=== PATIENT | female | born 1990 | race American Indian/Alaskan Native ===

== ENCOUNTER 2020-11-20 01:57 | Inpatient (IN) | payer SELFPAY ==
[2020-11-20 02:46] LABS: Hematocrit 37.6 % (30.3-42.9); Hemoglobin 12.7 gm/dl (10.1-14.3); Mean Corpuscular HGB Conc 34 % (30-34); Mean Corpuscular Volume 108 fl (79-97); Platelet Count 243 K/mm3 (140-440); Red Blood Count 3.49 M/mm3 (3.65-5.03); Red Cell Distribution Width 19.2 % (13.2-15.2)
[2020-11-20] MEDS ORDERED: SODIUM CHLORIDE 0.9% 1000 ML 1,000 ML IV ONE (02:49)
[2020-11-20] MEDS ORDERED: THIAMINE 100 MG in SODIUM CHLORIDE 0.9% 50 ML IV ONE (02:49)
[2020-11-20] MEDS ORDERED: ONDANSETRON 4 MG/2 ML INJ IV ONE (02:49)
[2020-11-20] MEDS ORDERED: FAMOTIDINE 20 MG/2 ML INJ IV ONE (02:49)
[2020-11-20] MEDS ORDERED: LORazepam 2 MG/ML VIAL IV ONE (02:50)
[2020-11-20] MEDS ORDERED: LIDOCAINE VISCOUS 2% 15 ML ORAL LIQD PO ONE (02:57)
[2020-11-20] MEDS ORDERED: ALUM-MAG HYDROXIDE-SIMETHICONE 200-200-20MG/5ML ORAL LIQD 30 ML PO ONE (02:57)
--- NOTE | 2020-11-20 03:02 | Emergency Department Report ---
ED Chest Pain HPI - General Chief Complaint: Chest Pain Stated Complaint: CHEST PAIN/NUMBNESS PUI?: No Time Seen by Provider: 11/20/20 02:46 Source: patient Mode of arrival: Ambulatory Limitations: No Limitations - History of Present Illness Initial Comments: Patient is a 30-year-old female that presents emergency room with complaints of epigastric pain. Patient states she not actually having chest pain. Patient states that it is on her epigastrium. Patient states she drinks daily. Patient states she is drink daily for several months. Patient states her last drink was 1 to 2 days ago. Patient states she drinks a bottle of vodka per day. Patient states she is having numbness in her hands. Patient states she does not take any multivitamins or vitamin D intake. Patient denies shortness of breath. Patient complains of being anxious. Patient denies nausea and vomiting. Patient states that her epigastric pain is a burning sensation in her epigastric region. Patient states the pain is a 6 out of 10. Patient states the pain is worse with alcohol intake. Patient denies recent travel. Patient denies recent international travel. Patient denies exposure to the novel coronavirus. Patient denies sick contacts. Patient denies fever and chills. Patient denies cough. Patient denies diarrhea. Patient denies coming in contact with anybody with symptoms of the novel coronavirus. -: Sudden - Related Data Allergies Allergy/AdvReac Type Severity Reaction Status Date / Time No Known Allergies Allergy Verified 11/20/20 02:52 Heart Score - HEART Score History: Slightly suspicious EKG: Normal Age: < 45 Risk factors: No known risk factors Troponin: < normal limit HEART Score: 0 ED Review of Systems ROS: Stated complaint: CHEST PAIN/NUMBNESS Other details as noted in HPI Constitutional: denies: chills, fever Eyes: denies: eye pain, eye discharge, vision change ENT: denies: ear pain, throat pain Respiratory: denies: cough, shortness of breath, wheezing Cardiovascular: denies: chest pain, palpitations Endocrine: no symptoms reported Gastrointestinal: as per HPI, abdominal pain. denies: nausea, diarrhea Genitourinary: denies: urgency, dysuria, discharge Musculoskeletal: denies: back pain, joint swelling, arthralgia Skin: denies: rash, lesions Neurological: denies: headache, weakness, paresthesias Psychiatric: denies: anxiety, depression Hematological/Lymphatic: denies: easy bleeding, easy bruising ED Past Medical Hx - Past Medical History Previous Medical History?: No - Surgical History Past Surgical History?: No - Family History Family history: no significant - Social History Smoking Status: Never Smoker Substance Use Type: Alcohol ED Physical Exam - General Limitations: No Limitations General appearance: alert, in no apparent distress - Head Head exam: Present: atraumatic, normocephalic - Eye Eye exam: Present: normal appearance - ENT ENT exam: Present: mucous membranes moist - Neck Neck exam: Present: normal inspection - Respiratory Respiratory exam: Present: normal lung sounds bilaterally. Absent: respiratory distress, chest wall tenderness - Cardiovascular Cardiovascular Exam: Present: regular rate, normal rhythm. Absent: systolic murmur, diastolic murmur, rubs, gallop - GI/Abdominal GI/Abdominal exam: Present: soft, tenderness (Epigastric tenderness), normal bowel sounds - Extremities Exam Extremities exam: Present: normal inspection - Back Exam Back exam: Present: normal inspection - Neurological Exam Neurological exam: Present: alert, oriented X3 - Psychiatric Psychiatric exam: Present: normal affect, normal mood - Skin Skin exam: Present: warm, dry, intact, normal color. Absent: rash ED Course Vital Signs 11/20/20 11/20/20 11/20/20 01:44 03:00 03:57 Pulse Rate 95 H Respiratory 16 Rate Blood Pressure 180/85 Blood Pressure 168/130 [Left] O2 Sat by Pulse 94 96 98 Oximetry 11/20/20 11/20/20 11/20/20 04:31 05:40 05:41 Pulse Rate 106 H 106 H Respiratory 18 18 Rate Blood Pressure 197/142 179/138 Blood Pressure 170/102 [Left] O2 Sat by Pulse 97 Oximetry - Reevaluation(s) Reevaluation #1: Initial evaluation done. Patient has refused IV medications. Patient states she does not want to be stuck. Patient states she does not want her medications to be given IM. Patient does not want any more needles. Patient refuses IV. Patient states that she will take a GI cocktail. 11/20/20 03:00 Reevaluation #2: Patient states feeling more anxious. Patient states she is feeling more tremulous. Patient agrees to have IV placed. 11/20/20 03:49 Reevaluation #3: Patient has received IV and IV Ativan and fluids.. Patient is severely tachycardic. Patient's blood pressure is also very high. Patient was started on CIWA protocol. Patient states feeling quite anxious and she is feeling shaky. 11/20/20 04:22 Reevaluation #4: Patient has required multiple doses of Ativan. Patient will continue on the CIWA protocol. Patient had numbness is improving with the banana bag. I discussed all results with patient. I discussed plan of care with patient. Patient agrees with plan of care and admission. Patient to be admitted to the hospitalist service. 11/20/20 04:50 - Consultations Consultation #1: Hospitalist consulted for admission. Hospitalist to admit patient. 11/20/20 04:50 MORALES score - Morales Score Age > 65: (0) No Aspirin use within the Past 7 Days: (0) No 3 or more CAD Risk Factors: (0) No 2 or more Angina events in past 24 hrs: (0) No Known CAD with more than 50% Stenosis: (0) No Elevated Cardiac Markers: (0) No ST Deviation Greater than 0.5mm: (0) No MORALES Score: 0 ED Medical Decision Making - Lab Data Result diagrams: 11/20/20 02:17 11/20/20 02:17 - EKG Data -: EKG Interpreted by Me EKG shows normal: sinus rhythm, axis, intervals, QRS complexes, ST-T waves Rate: normal - Radiology Data Radiology results: report reviewed, image reviewed interpreted by me: Chest x-ray: No pneumonia, no pneumothorax, no foreign body, no osseous findings, no acute findings CHEST 1 VIEW 3:15 AM INDICATION / CLINICAL INFORMATION: Chest Pain. COMPARISON: None available. FINDINGS: SUPPORT DEVICES: None. HEART / MEDIASTINUM: The heart size and pulmonary vasculature are normal. The aorta is normal in caliber. LUNGS / PLEURA: No significant pulmonary or pleural abnormality. No pneumothora x. ADDITIONAL FINDINGS: No significant additional findings. IMPRESSION: No acute findings. - Medical Decision Making Patient is a 30-year-old female that presents emergency room with complaints of epigastric pain. Patient denies chest pain or shortness of breath. Patient also complains of anxiety and hand numbness. Patient also complains of feeling shaky and tremulous. Patient is a daily drinker. Patient has not drank for 1 to 2 days. Patient given a GI cocktail for the gastritis and her pain improved. Patient found to be tachycardic and hypertensive. Patient started on a CIWA protocol and given Ativan. Patient required multiple doses of Ativan. Patient responded well to treatment. Patient also given Pepcid and IV fluids and a banana bag and a multivitamin. Patient admitted to the hospitalist service for further evaluation treatment and observation. Patient in alcohol withdrawal. - Differential Diagnosis Alcoholism, alcoholic gastritis, B12 deficiency, hand numbness, alcohol wit Critical Care Time: Yes Critical care time in (mins) excluding proc time.: 35 Critical care attestation.: If time is entered above; I have spent that time in minutes in the direct care of this critically ill patient, excluding procedure time. Critical Care Time: 35 minutes ED Disposition Clinical Impression: Epigastric pain, Bilateral hand numbness, Vitamin deficiency, Macrocytosis, Anxiety, Hypokalemia, Hypomagnesemia Alcoholic gastritis Qualifiers: Chronicity: acute Gastritis bleeding: without bleeding Qualified Code(s): K29.20 - Alcoholic gastritis without bleeding Alcohol withdrawal Qualifiers: Complication of substance-induced condition: uncomplicated Qualified Code(s): F10.230 - Alcohol dependence with withdrawal, uncomplicated Hypertension Qualifiers: Hypertension type: unspecified Qualified Code(s): I10 - Essential (primary) hypertension Disposition: 09 OP ADMIT IP TO THIS HOSP Is pt being admited?: Yes Does the pt Need Aspirin: No Condition: Critical Instructions: Hypertension (ED) Time of Disposition: 04:50
[2020-11-20 03:05] LABS: Blood Urea Nitrogen 5 mg/dL (7-17); Calcium 8.8 mg/dL (8.4-10.2); Hemolysis Index 3
[2020-11-20 03:09] LABS: BUN/Creatinine Ratio 10
--- NOTE | 2020-11-20 03:21 | XRay Report ---
CHEST 1 VIEW 3:15 AM INDICATION / CLINICAL INFORMATION: Chest Pain. COMPARISON: None available. FINDINGS: SUPPORT DEVICES: None. HEART / MEDIASTINUM: The heart size and pulmonary vasculature are normal. The aorta is normal in franco maciel. LUNGS / PLEURA: No significant pulmonary or pleural abnormality. No pneumothorax. ADDITIONAL FINDINGS: No significant additional findings. IMPRESSION: No acute findings. Signer Name: Shahid Hidalgo MD Signed: 11/20/2020 3:17 AM Workstation Name: [id number]
[2020-11-20 03:25] LABS: Albumin 4.4 g/dL (3.9-5); Bilirubin,Direct 0.5 mg/dL (0-0.2)
[2020-11-20] MEDS ORDERED: THIAMINE 100 MG, FOLIC ACID 1 MG, MULTIPLE VITAMIN INJ, ADULT 10 ML in SODIUM CHLORIDE ... IV ONE (04:04)
[2020-11-20] MEDS ORDERED: LORazepam 2 MG/ML VIAL IV PRN ×2 (04:20)
[2020-11-20 04:25] LABS: Anisocytosis 1+; Macrocytosis 1+; Platelet Estimate Consistent w Auto; Total Cells Counted 100
[2020-11-20] MEDS: LORazepam 2 MG/ML VIAL IV PRN ×7 (04:25→21:24)
[2020-11-20] MEDS ORDERED: ONDANSETRON 4 MG/2 ML INJ IV PRN (05:23)
[2020-11-20] MEDS ORDERED: ALUM-MAG HYDROXIDE-SIMETHICONE 200-200-20MG/5ML ORAL LIQD 30 ML PO PRN (05:23)
[2020-11-20] MEDS ORDERED: ACETAMINOPHEN 325 MG TAB PO PRN (05:23)
--- NOTE | 2020-11-20 05:30 | History and Physical Report ---
History of Present Illness Date of examination: 11/20/20 Chief complaint: Chest pain Epigastric pain Alcohol withdrawal History of present illness: 30-year-old female with history of alcohol abuse was brought to emergency room with complaints of epigastric pain/chest pain. Patient is not actually having chest pain, it is on her epigastrium. Patient complaining of epigastric pain is a burning sensation in her epigastric region which is 6/10 worse with alcohol intake. patient drinks a bottle of vodka per day for several months. Patient states she is having numbness in her hands. Patient states she does not take any multivitamins or vitamin D intake. Patient denies shortness of breath. Patient complains of being anxious. Medications and Allergies Allergies Allergy/AdvReac Type Severity Reaction Status Date / Time No Known Allergies Allergy Verified 11/20/20 02:52 Active Meds: Active Medications Acetaminophen (Acetaminophen 325 Mg Tab) 650 mg PO Q4H PRN PRN Reason: Pain MILD(1-3)/Fever >100.5/CARTER Al Hydrox/Mg Hydrox/Simethicone (Alum-Mag Hydroxide-Simethicone [id number]/5ml Oral Liqd 30 Ml) 30 ml PO Q4H PRN PRN Reason: Indigestion Famotidine (Famotidine 20 Mg/2 Ml Inj) 20 mg IV BID RAZ Thiamine HCl 100 mg/ Folic Acid 1 mg/ Multivitamins/Minerals 10 ml/ Sodium Chloride 1,011.2 mls @ 250 mls/hr IV ONCE ONE Stop: 11/20/20 08:06 Last Admin: 11/20/20 04:46 Dose: 250 mls/hr Documented by: Potassium Chloride/Dextrose/Sod Cl (D5w/0.45% Nacl/Kcl 20 Meq) 20 meq in 1,000 mls @ 100 mls/hr IV DIRECT RAZ Lorazepam (Lorazepam 2 Mg/Ml Vial) 2 mg IV Q1HR PRN PRN Reason: CIWA-Ar 8-15 Last Admin: 11/20/20 04:46 Dose: 2 mg Documented by: Lorazepam (Lorazepam 2 Mg/Ml Vial) 4 mg IV Q1HR PRN PRN Reason: CIWA-Ar 16-25 Lorazepam (Lorazepam 2 Mg/Ml Vial) 4 mg IV Q15MIN PRN PRN Reason: CIWA-Ar >25 Ondansetron HCl (Ondansetron 4 Mg/2 Ml Inj) 4 mg IV Q8H PRN PRN Reason: Nausea And Vomiting Sodium Chloride (Sodium Chloride 0.9% 10 Ml Flush Syringe) 10 ml IV BID RAZ Sodium Chloride (Sodium Chloride 0.9% 10 Ml Flush Syringe) 10 ml IV PRN PRN PRN Reason: LINE FLUSH Review of Systems Constitutional: fatigue, lethargy Exam - Constitutional Vitals: Temp Pulse Resp BP Pulse Ox 95 H 16 168/130 98 11/20/20 03:57 11/20/20 03:57 11/20/20 03:57 11/20/20 03:57 General appearance: Present: no acute distress, mild distress, well-nourished - EENT Eyes: Present: PERRL ENT: hearing intact, clear oral mucosa - Neck Neck: Present: supple, normal ROM - Respiratory Respiratory effort: normal Respiratory: bilateral: CTA - Cardiovascular Heart Sounds: Present: S1 & S2. Absent: rub, click - Extremities Extremities: pulses symmetrical, No edema Peripheral Pulses: within normal limits - Abdominal General gastrointestinal: Present: soft, non-tender, non-distended, normal bowel sounds Female genitourinary: Present: normal - Integumentary Integumentary: Present: clear, warm, dry - Musculoskeletal Musculoskeletal: gait normal, strength equal bilaterally - Psychiatric Psychiatric: appropriate mood/affect, intact judgment & insight, agitated - Neurologic Neurologic: CNII-XII intact, moves all extremities HEART Score - HEART Score EKG: Normal Age: < 45 Risk factors: No known risk factors Troponin: Troponin T < 0.010 ng/mL (0.00-0.029) 11/20/20 02:17 Troponin: < normal limit Results - Labs CBC & Chem 7: 11/20/20 02:17 11/20/20 02:17 Labs: Laboratory Last Values WBC 4.6 K/mm3 (4.5-11.0) 11/20/20 02:17 RBC 3.49 M/mm3 (3.65-5.03) L 11/20/20 02:17 Hgb 12.7 gm/dl (10.1-14.3) 11/20/20 02:17 Hct 37.6 % (30.3-42.9) 11/20/20 02:17 MCV 108 fl (79-97) H 11/20/20 02:17 MCH 37 pg (28-32) H 11/20/20 02:17 MCHC 34 % (30-34) 11/20/20 02:17 RDW 19.2 % (13.2-15.2) H 11/20/20 02:17 Plt Count 243 K/mm3 (140-440) 11/20/20 02:17 [place] % (Auto) Banking Paralegal 11/20/20 02:17 Add Manual Diff Complete 11/20/20 02:17 Total Counted 100 11/20/20 02:17 Seg Neuts % (Manual) 51.0 % (40.0-70.0) 11/20/20 02:17 Lymphocytes % (Manual) 27.0 % (13.4-35.0) 11/20/20 02:17 Monocytes % (Manual) 11.0 % (0.0-7.3) H 11/20/20 02:17 Eosinophils % (Manual) 11.0 % (0.0-4.3) H 11/20/20 02:17 Nucleated RBC % Not Reportable 11/20/20 02:17 Seg Neutrophils # Man 2.3 K/mm3 (1.8-7.7) 11/20/20 02:17 Band Neutrophils # 0.0 K/mm3 11/20/20 02:17 Lymphocytes # (Manual) 1.2 K/mm3 (1.2-5.4) 11/20/20 02:17 Abs React Lymphs (Man) 0.0 K/mm3 11/20/20 02:17 Monocytes # (Manual) 0.5 K/mm3 (0.0-0.8) 11/20/20 02:17 Eosinophils # (Manual) 0.5 K/mm3 (0.0-0.4) H 11/20/20 02:17 Basophils # (Manual) 0.0 K/mm3 (0.0-0.1) 11/20/20 02:17 Metamyelocytes # 0.0 K/mm3 11/20/20 02:17 Myelocytes # 0.0 K/mm3 11/20/20 02:17 Promyelocytes # 0.0 K/mm3 11/20/20 02:17 Blast Cells # 0.0 K/mm3 11/20/20 02:17 WBC Morphology Not Reportable 11/20/20 02:17 Hypersegmented Neuts Not Reportable 11/20/20 02:17 Hyposegmented Neuts Not Reportable 11/20/20 02:17 Hypogranular Neuts Not Reportable 11/20/20 02:17 Smudge Cells Not Reportable 11/20/20 02:17 Toxic Granulation Not Reportable 11/20/20 02:17 Toxic Vacuolation Not Reportable 11/20/20 02:17 Dohle Bodies Not Reportable 11/20/20 02:17 Pelger-Huet Anomaly Not Reportable 11/20/20 02:17 Gage Rods Not Reportable 11/20/20 02:17 Platelet Estimate Consistent w auto 11/20/20 02:17 Clumped Platelets Not Reportable 11/20/20 02:17 Plt Clumps, EDTA Not Reportable 11/20/20 02:17 Large Platelets Not Reportable 11/20/20 02:17 Giant Platelets Not Reportable 11/20/20 02:17 Platelet Satelliting Not Reportable 11/20/20 02:17 Plt Morphology Comment Not Reportable 11/20/20 02:17 RBC Morphology Not Reportable 11/20/20 02:17 Dimorphic RBCs Not Reportable 11/20/20 02:17 Polychromasia Not Reportable 11/20/20 02:17 Hypochromasia Not Reportable 11/20/20 02:17 Poikilocytosis Not Reportable 11/20/20 02:17 Anisocytosis 1+ 11/20/20 02:17 Microcytosis Not Reportable 11/20/20 02:17 Macrocytosis 1+ 11/20/20 02:17 Spherocytes Not Reportable 11/20/20 02:17 Pappenheimer Bodies Not Reportable 11/20/20 02:17 Sickle Cells Not Reportable 11/20/20 02:17 Target Cells Not Reportable 11/20/20 02:17 Tear Drop Cells Not Reportable 11/20/20 02:17 Ovalocytes Not Reportable 11/20/20 02:17 Helmet Cells Not Reportable 11/20/20 02:17 Bonilla-Gower Bodies Not Reportable 11/20/20 02:17 [place] Rings Not Reportable 11/20/20 02:17 Von Cells Not Reportable 11/20/20 02:17 Bite Cells Not Reportable 11/20/20 02:17 Crenated Cell Not Reportable 11/20/20 02:17 Elliptocytes Not Reportable 11/20/20 02:17 Acanthocytes (Spur) Not Reportable 11/20/20 02:17 Rouleaux Not Reportable 11/20/20 02:17 Hemoglobin C Crystals Not Reportable 11/20/20 02:17 Schistocytes Not Reportable 11/20/20 02:17 Malaria parasites Not Reportable 11/20/20 02:17 Philipp Bodies Not Reportable 11/20/20 02:17 Hem Pathologist Commnt No 11/20/20 02:17 Sodium 140 mmol/L (137-145) 11/20/20 02:17 Potassium 3.0 mmol/L (3.6-5.0) L 11/20/20 02:17 Chloride 96.8 mmol/L (98-107) L 11/20/20 02:17 Carbon Dioxide 26 mmol/L (22-30) 11/20/20 02:17 Anion Gap 20 mmol/L 11/20/20 02:17 BUN 5 mg/dL (7-17) L 11/20/20 02:17 Creatinine 0.5 mg/dL (0.6-1.2) L 11/20/20 02:17 Estimated GFR > 60 ml/min 11/20/20 02:17 BUN/Creatinine Ratio 10 % 11/20/20 02:17 Glucose 124 mg/dL (65-100) H 11/20/20 02:17 Calcium 8.8 mg/dL (8.4-10.2) 11/20/20 02:17 Total Bilirubin 1.60 mg/dL (0.1-1.2) H 11/20/20 02:57 Direct Bilirubin 0.5 mg/dL (0-0.2) H 11/20/20 02:57 Indirect Bilirubin 1.1 mg/dL 11/20/20 02:57 AST 105 units/L (5-40) H 11/20/20 02:57 ALT 37 units/L (7-56) 11/20/20 02:57 Alkaline Phosphatase 105 units/L (35-129) 11/20/20 02:57 Troponin T < 0.010 ng/mL (0.00-0.029) 11/20/20 02:17 Total Protein 7.0 g/dL (6.3-8.2) 11/20/20 02:57 Albumin 4.4 g/dL (3.9-5) 11/20/20 02:57 Albumin/Globulin Ratio 1.7 % 11/20/20 02:57 HCG, Qual Negative (Negative) 11/20/20 02:17 - Imaging and Cardiology Chest x-ray: image reviewed Masters/IV: IV Catheter Type [Right INT / Saline Lock Antecubital] Assessment and Plan - Patient Problems (1) Alcoholic gastritis Current Visit: Yes Status: Acute Qualifiers: Chronicity: acute Gastritis bleeding: without bleeding Qualified Code(s): K29.20 - Alcoholic gastritis without bleeding Plan to address problem: Admit the patient to the medical floor. Put the patient on regular diet. D5 half-normal saline with 20 of potassium K at the rate of 100 cc/h. Pepcid 20 mg IV every 12 hours. Zofran 4 mg IV every 6 hours as needed. Maalox 30 mL p.o. every 6 hours as needed. Recheck CBC BMP in the morning (2) Alcohol withdrawal Current Visit: Yes Status: Acute Qualifiers: Complication of substance-induced condition: uncomplicated Qualified Code(s): F10.230 - Alcohol dependence with withdrawal, uncomplicated Plan to address problem: Admit the patient to the medical floor. Put the patient on regular diet. D5 half-normal saline with 20 of potassium K at the rate of 100 cc/h. Put the patient on CIWA protocol. We will watch for withdrawal closely. Patient counseled regarding quit drinking. Recheck CBC BMP in the morning. Heparin 5000 units subcu every 8 hours for DVT prophylaxis and Pepcid 20 mg IV every 12 hours for GI prophylaxis.
[2020-11-20] MEDS ORDERED: METOPROLOL TARTRATE 5 MG/5 ML INJ IV ONE (05:43)
[2020-11-20] MEDS ORDERED: D5W/0.45% NACL/KCL 20 MEQ 20 MEQ/1,000 ML BAG IV SCH (06:00)
[2020-11-20] MEDS ORDERED: MAGNESIUM SULFATE 2 GM/50 ML BAG IV ONE (08:56)
[2020-11-20] MEDS ORDERED: POTASSIUM CHLORIDE 20 MEQ PACKET FEEDTUBE ONE (09:00)
[2020-11-20] MEDS: SUCRALFATE 1 GM/10 ML ORAL LIQD PO SCH ×3 (09:32→20:15)
[2020-11-20] MEDS: FAMOTIDINE 20 MG/2 ML INJ IV SCH ×2 (09:36→22:10)
--- NOTE | 2020-11-20 10:52 | Event Note ---
Date: 11/20/20 Patient was seen and evaluated this morning. Patient admitted for gastric pain, alcohol abuse, and electrolyte abnormalities. Electrolytes were repleted. Patient is on CIWA protocol. We will resume his diet. Continue management as outlined in H&P.
[2020-11-20 12:13] LABS: Blood Urea Nitrogen 3 mg/dL (7-17); Calcium 7.6 mg/dL (8.4-10.2); Hemolysis Index 37
[2020-11-20 12:23] LABS: BUN/Creatinine Ratio 10
[2020-11-20] MEDS: hydrALAZINE 20 MG/1 ML INJ IV PRN ×2 (14:33→20:57)
[2020-11-21] MEDS ORDERED: dilTIAZem 25 MG/5 ML INJ IV ONE ×2 (01:01→05:06)
[2020-11-21] MEDS: SUCRALFATE 1 GM/10 ML ORAL LIQD PO SCH ×3 (01:19→12:22)
[2020-11-21] MEDS: hydrALAZINE 20 MG/1 ML INJ IV PRN ×2 (04:29→08:26)
[2020-11-21 06:26] LABS: Basophils % (Auto) 0.7 % (0.0-1.8); Eosinophils # (Auto) 0.2 K/mm3 (0.0-0.4); Eosinophils % (Auto) 4.5 % (0.0-4.3); Hematocrit 38.2 % (30.3-42.9); Hemoglobin 12.6 gm/dl (10.1-14.3); Lymphocytes # (Auto) 1.1 K/mm3 (1.2-5.4); Lymphocytes % (Auto) 21.7 % (13.4-35.0); Mean Corpuscular HGB Conc 33 % (30-34); Mean Corpuscular Volume 110 fl (79-97); Monocytes # (Auto) 0.7 K/mm3 (0.0-0.8); Monocytes % (Auto) 13.2 % (0.0-7.3); Platelet Count 216 K/mm3 (140-440); Red Blood Count 3.49 M/mm3 (3.65-5.03)
[2020-11-21 06:43] LABS: Blood Urea Nitrogen 3 mg/dL (7-17); Calcium 8.1 mg/dL (8.4-10.2); Hemolysis Index 20
[2020-11-21 06:49] LABS: BUN/Creatinine Ratio 10
[2020-11-21] MEDS ORDERED: PANTOPRAZOLE 40 MG TAB PO SCH (09:01)
[2020-11-21] MEDS ORDERED: METOPROLOL TARTRATE 50 MG TAB PO SCH (10:00)
[2020-11-21] MEDS ORDERED: POTASSIUM CHLORIDE ER 20 MEQ TAB PO SCH (10:00)
[2020-11-21] MEDS ORDERED: amLODIPine 10 MG TAB PO SCH (10:00)
[2020-11-21] MEDS: FAMOTIDINE 20 MG/2 ML INJ IV SCH (10:07)
--- NOTE | 2020-11-21 10:07 | Discharge Summary ---
Providers - Providers Date of Admission: 11/20/20 05:00 Date of discharge: 11/21/20 Attending physician: NOAH SOW MD [facility] Reason for admission: Alcohol withdrawal, epigastric pain, numbness in the hands Condition: Stable Hospital course: 30-year-old female with history of alcohol abuse was brought to emergency room with complaints of epigastric pain/chest pain. Patient is not actually having chest pain, it is on her epigastrium. Patient complaining of epigastric pain i s a burning sensation in her epigastric region which is 6/10 worse with alcohol intake. patient drinks a bottle of vodka per day for several months. Patient states she is having numbness in her hands. Patient states she does not take any multivitamins or vitamin D intake. Patient denies shortness of breath. Patient complains of being anxious. Hospital course -Patient was admitted to the floor and treated with PPI and sucralfate epigastric pain resolved. Patient was put on [facility] protocol for alcohol withdrawal. Patient is doing well. Patient has hypertension and tachycardia and patient was placed on amlodipine and metoprolol will be discharged with this medication. Patient has some numbness and likely due to vitamin deficiency versus alcohol induced. Patient does not have any focal weakness or anything suggestive of CVA. Numbness is bilateral and when she came in she said her hands and this morning she said it is her legs. Patient was given thiamine, folate, vitamin B12, and multivitamin. Patient was discharged with these medications. Patient advised to have follow-up with her primary care physician. Patient counseled extensively about cessation of drinking alcohol and patient verbalized she understood. Disposition: TO HOME OR SELFCARE Time spent for discharge: 32 minutes - Discharge Diagnoses (1) Alcohol withdrawal Status: Acute Qualifiers: Complication of substance-induced condition: uncomplicated Qualified Code(s): F10.230 - Alcohol dependence with withdrawal, uncomplicated (2) Alcoholic gastritis Status: Acute Qualifiers: Chronicity: acute Gastritis bleeding: without bleeding Qualified Code(s): K29.20 - Alcoholic gastritis without bleeding (3) Anxiety Status: Acute (4) Bilateral hand numbness Status: Acute (5) Hypertension Status: Acute Qualifiers: Hypertension type: unspecified Qualified Code(s): I10 - Essential (primary) hypertension (6) Hypokalemia Status: Acute (7) Hypomagnesemia Status: Acute (8) Macrocytosis Status: Acute (9) Vitamin deficiency Status: Acute Core Measure Documentation - Palliative Care Palliative Care/ Comfort Measures: Not Applicable - Core Measures Any of the following diagnoses?: none Exam - Physical Exam Narrative exam: Not in cardiopulmonary distress. The patient appeared well nourished and normally developed. Vital signs as documented. Head exam is unremarkable. No scleral icterus . Neck is without jugular venous distension, thyromegaly, or carotid bruits. Lungs are clear to auscultation. Cardiac exam reveals regular rate and Rhythm. Abdominal exam reveals normal bowel sounds, nontender, no organomegaly. Extremities are nonedematous and both femoral and pedal pulses are normal. FOOD SAFETY FIELD SPECIALIST: Alert and oriented 3. No focal weakness. - Constitutional Vitals: Temp Pulse Resp BP Pulse Ox 98.2 F 124 H 16 162/111 97 11/20/20 19:45 11/21/20 08:26 11/21/20 06:45 11/21/20 08:26 11/21/20 06:45 Plan Activity: no restrictions Weight Bearing Status: Full Weight Bearing Diet: regular Special Instructions: other (Abstain from alcohol) Follow up with: BALDEMAR JC MD [Primary Care Provider] - 3-5 Days Prescriptions: amLODIPine 10 mg PO QDAY #30 tablet Sucralfate [Carafate] 1 gm PO Q6HR #120 oral.liqd Folic Acid 1 mg PO DAILY #30 tablet Potassium Chloride [K-Dur] 40 meq PO QDAY #5 tablet Metoprolol [Lopressor TAB] 50 mg PO BID #60 tablet Pantoprazole [Protonix TAB] 40 mg PO BIDAC #60 tablet Thiamine [Vitamin B-1] 100 mg PO QDAY #30 tablet Cyanocobalamin (Vitamin B-12) [Vitamin B-12] 1,000 mcg PO DAILY #30 tablet
[2020-11-21] MEDS: LORazepam 2 MG/ML VIAL IV PRN (10:56)
--- NOTE | 2020-11-21 11:29 | Progress Note ---
Assessment and Plan Assessment and plan: (1) Alcoholic gastritis Current Visit: Yes Status: Acute Qualifiers: Chronicity: acute Gastritis bleeding: without bleeding Qualified Code(s): K29.20 - Alcoholic gastritis without bleeding Plan to address problem: Admit the patient to the medical floor. Put the patient on regular diet. D5 half-normal saline with 20 of potassium K at the rate of 100 cc/h. Pepcid 20 mg IV every 12 hours. Zofran 4 mg IV every 6 hours as needed. Maalox 30 mL p.o. every 6 hours as needed. Recheck CBC BMP in the morning (2) Alcohol withdrawal Current Visit: Yes Status: Acute Qualifiers: Complication of substance-induced condition: uncomplicated Qualified Code(s): F10.230 - Alcohol dependence with withdrawal, uncomplicated Plan to address problem: Admit the patient to the medical floor. Put the patient on regular diet. D5 half-normal saline with 20 of potassium K at the rate of 100 cc/h. Put the patient on CIWA protocol. We will watch for withdrawal closely. Patient counseled regarding quit drinking. Recheck CBC BMP in the morning. Heparin 5000 units subcu every 8 hours for DVT prophylaxis and Pepcid 20 mg IV every 12 hours for GI prophylaxis. 11/21/2020 Patient's epigastric pain is getting better, will continue with pantoprazole and sucralfate Alcohol withdrawal; she is on CIWA protocol Electrolyte abnormalities; corrected Patient is still tachycardic, will do D-dimer and if negative she can go home. If D-dimer is high I will do CTA and if CT is negative she can go home. I will give her appropriate prescriptions. - Patient Problems (1) Alcohol withdrawal Current Visit: Yes Status: Acute Qualifiers: Complication of substance-induced condition: uncomplicated Qualified Code(s): F10.230 - Alcohol dependence with withdrawal, uncomplicated (2) Alcoholic gastritis Current Visit: Yes Status: Acute Qualifiers: Chronicity: acute Gastritis bleeding: without bleeding Qualified Code(s): K29.20 - Alcoholic gastritis without bleeding (3) Anxiety Current Visit: Yes Status: Acute (4) Bilateral hand numbness Current Visit: Yes Status: Acute (5) Hypertension Current Visit: Yes Status: Acute Qualifiers: Hypertension type: unspecified Qualified Code(s): I10 - Essential (primary) hypertension (6) Hypokalemia Current Visit: Yes Status: Acute (7) Hypomagnesemia Current Visit: Yes Status: Acute (8) Macrocytosis Current Visit: Yes Status: Acute (9) Vitamin deficiency Current Visit: Yes Status: Acute History Interval history: Patient was seen and evaluated this morning Was alert and oriented She states she is feeling better and wants to go home Hospitalist Physical - Physical exam Narrative exam: Not in cardiopulmonary distress. The patient appeared well nourished and normally developed. Vital signs as documented. Head exam is unremarkable. No scleral icterus . Neck is without jugular venous distension, thyromegaly, or carotid bruits. Lungs are clear to auscultation. Cardiac exam reveals regular rate and Rhythm. Abdominal exam reveals normal bowel sounds, nontender, no organomegaly. Extremities are nonedematous and both femoral and pedal pulses are normal. 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 No focal weakness. - Constitutional Vitals: Temp Pulse Resp BP Pulse Ox 98.2 F 153 H 13 137/91 95 11/20/20 19:45 11/21/20 10:08 11/21/20 08:00 11/21/20 10:45 11/21/20 10:45 General appearance: Present: no acute distress, mild distress, well-nourished HEART Score - HEART Score EKG: Normal Age: < 45 Risk factors: No known risk factors Troponin: Troponin T < 0.010 ng/mL (0.00-0.029) 11/20/20 02:17 Troponin: < normal limit Results - Labs CBC & Chem 7: 11/21/20 05:35 11/21/20 05:35 Labs: Laboratory Last Values WBC 5.3 K/mm3 (4.5-11.0) 11/21/20 05:35 RBC 3.49 M/mm3 (3.65-5.03) L 11/21/20 05:35 Hgb 12.6 gm/dl (10.1-14.3) 11/21/20 05:35 Hct 38.2 % (30.3-42.9) 11/21/20 05:35 MCV 110 fl (79-97) H 11/21/20 05:35 MCH 36 pg (28-32) H 11/21/20 05:35 MCHC 33 % (30-34) 11/21/20 05:35 RDW 20.0 % (13.2-15.2) H 11/21/20 05:35 Plt Count 216 K/mm3 (140-440) 11/21/20 05:35 Lymph % (Auto) 21.7 % (13.4-35.0) 11/21/20 05:35 Rains % (Auto) 13.2 % (0.0-7.3) H 11/21/20 05:35 Eos % (Auto) 4.5 % (0.0-4.3) H 11/21/20 05:35 Baso % (Auto) 0.7 % (0.0-1.8) 11/21/20 05:35 Lymph # (Auto) 1.1 K/mm3 (1.2-5.4) L 11/21/20 05:35 Rains # (Auto) 0.7 K/mm3 (0.0-0.8) 11/21/20 05:35 Eos # (Auto) 0.2 K/mm3 (0.0-0.4) 11/21/20 05:35 Baso # (Auto) 0.0 K/mm3 (0.0-0.1) 11/21/20 05:35 Add Manual Diff Complete 11/20/20 02:17 Total Counted 100 11/20/20 02:17 Seg Neutrophils % 59.9 % (40.0-70.0) 11/21/20 05:35 Seg Neuts % (Manual) 51.0 % (40.0-70.0) 11/20/20 02:17 Lymphocytes % (Manual) 27.0 % (13.4-35.0) 11/20/20 02:17 Monocytes % (Manual) 11.0 % (0.0-7.3) H 11/20/20 02:17 Eosinophils % (Manual) 11.0 % (0.0-4.3) H 11/20/20 02:17 Nucleated RBC % Not Reportable 11/20/20 02:17 Seg Neutrophils # 3.2 K/mm3 (1.8-7.7) 11/21/20 05:35 Seg Neutrophils # Man 2.3 K/mm3 (1.8-7.7) 11/20/20 02:17 Band Neutrophils # 0.0 K/mm3 11/20/20 02:17 Lymphocytes # (Manual) 1.2 K/mm3 (1.2-5.4) 11/20/20 02:17 Abs React Lymphs (Man) 0.0 K/mm3 11/20/20 02:17 Monocytes # (Manual) 0.5 K/mm3 (0.0-0.8) 11/20/20 02:17 Eosinophils # (Manual) 0.5 K/mm3 (0.0-0.4) H 11/20/20 02:17 Basophils # (Manual) 0.0 K/mm3 (0.0-0.1) 11/20/20 02:17 Metamyelocytes # 0.0 K/mm3 11/20/20 02:17 Myelocytes # 0.0 K/mm3 11/20/20 02:17 Promyelocytes # 0.0 K/mm3 11/20/20 02:17 Blast Cells # 0.0 K/mm3 11/20/20 02:17 WBC Morphology Not Reportable 11/20/20 02:17 Hypersegmented Neuts Not Reportable 11/20/20 02:17 Hyposegmented Neuts Not Reportable 11/20/20 02:17 Hypogranular Neuts Not Reportable 11/20/20 02:17 Smudge Cells Not Reportable 11/20/20 02:17 Toxic Granulation Not Reportable 11/20/20 02:17 Toxic Vacuolation Not Reportable 11/20/20 02:17 Dohle Bodies Not Reportable 11/20/20 02:17 Pelger-Huet Anomaly Not Reportable 11/20/20 02:17 Gage Rods Not Reportable 11/20/20 02:17 Platelet Estimate Consistent w auto 11/20/20 02:17 Clumped Platelets Not Reportable 11/20/20 02:17 Plt Clumps, EDTA Not Reportable 11/20/20 02:17 Large Platelets Not Reportable 11/20/20 02:17 Giant Platelets Not Reportable 11/20/20 02:17 Platelet Satelliting Not Reportable 11/20/20 02:17 Plt Morphology Comment Not Reportable 11/20/20 02:17 RBC Morphology Not Reportable 11/20/20 02:17 Dimorphic RBCs Not Reportable 11/20/20 02:17 Polychromasia Not Reportable 11/20/20 02:17 Hypochromasia Not Reportable 11/20/20 02:17 Poikilocytosis Not Reportable 11/20/20 02:17 Anisocytosis 1+ 11/20/20 02:17 Microcytosis Not Reportable 11/20/20 02:17 Macrocytosis 1+ 11/20/20 02:17 Spherocytes Not Reportable 11/20/20 02:17 Pappenheimer Bodies Not Reportable 11/20/20 02:17 Sickle Cells Not Reportable 11/20/20 02:17 Target Cells Not Reportable 11/20/20 02:17 Tear Drop Cells Not Reportable 11/20/20 02:17 Ovalocytes Not Reportable 11/20/20 02:17 Helmet Cells Not Reportable 11/20/20 02:17 [place] Bodies Not Reportable 11/20/20 02:17 [place] Rings Not Reportable 11/20/20 02:17 Von Cells Not Reportable 11/20/20 02:17 Bite Cells Not Reportable 11/20/20 02:17 Crenated Cell Not Reportable 11/20/20 02:17 Elliptocytes Not Reportable 11/20/20 02:17 Acanthocytes (Spur) Not Reportable 11/20/20 02:17 Rouleaux Not Reportable 11/20/20 02:17 Hemoglobin C Crystals Not Reportable 11/20/20 02:17 Schistocytes Not Reportable 11/20/20 02:17 Malaria parasites Not Reportable 11/20/20 02:17 Philipp Bodies Not Reportable 11/20/20 02:17 Hem Pathologist Commnt No 11/20/20 02:17 Sodium 141 mmol/L (137-145) 11/21/20 05:35 Potassium 3.2 mmol/L (3.6-5.0) L 11/21/20 05:35 Chloride 103.7 mmol/L (98-107) 11/21/20 05:35 Carbon Dioxide 21 mmol/L (22-30) L 11/21/20 05:35 Anion Gap 20 mmol/L 11/21/20 05:35 BUN 3 mg/dL (7-17) L 11/21/20 05:35 Creatinine 0.3 mg/dL (0.6-1.2) L 11/21/20 05:35 Estimated GFR > 60 ml/min 11/21/20 05:35 BUN/Creatinine Ratio 10 % 11/21/20 05:35 Glucose 83 mg/dL (65-100) 11/21/20 05:35 Calcium 8.1 mg/dL (8.4-10.2) L 11/21/20 05:35 Phosphorus 3.10 mg/dL (2.5-4.5) 11/20/20 04:20 Magnesium 1.10 mg/dL (1.7-2.3) L 11/20/20 04:20 Total Bilirubin 1.60 mg/dL (0.1-1.2) H 11/20/20 02:57 Direct Bilirubin 0.5 mg/dL (0-0.2) H 11/20/20 02:57 Indirect Bilirubin 1.1 mg/dL 11/20/20 02:57 AST 105 units/L (5-40) H 11/20/20 02:57 ALT 37 units/L (7-56) 11/20/20 02:57 Alkaline Phosphatase 105 units/L (35-129) 11/20/20 02:57 Troponin T < 0.010 ng/mL (0.00-0.029) 11/20/20 02:17 Total Protein 7.0 g/dL (6.3-8.2) 11/20/20 02:57 Albumin 4.4 g/dL (3.9-5) 11/20/20 02:57 Albumin/Globulin Ratio 1.7 % 11/20/20 02:57 Lipase 24 units/L (13-60) 11/20/20 05:24 HCG, Qual Negative (Negative) 11/20/20 02:17 Masters/IV: IV Catheter Type [Left Hand] Peripheral IV IV Catheter Type [Right INT / Saline Lock Antecubital] Active Medications - Current Medications Current Medications: Generic Name Dose Route Start Last Admin Trade Name Freq PRN Reason Stop Dose Admin Acetaminophen 650 mg 11/20/20 05:23 Acetaminophen 325 Mg Tab PO Q4H PRN Pain MILD(1-3)/Fever >100.5/CARTER Al Hydrox/Mg Hydrox/Simethicone 30 ml 11/20/20 05:23 Alum-Mag Hydroxide-Simethicone [id number]/5ml Oral Liqd 30 Ml PO Q4H PRN Indigestion Amlodipine Besylate 10 mg 11/21/20 10:00 11/21/20 10:08 Amlodipine 10 Mg Tab PO 10 mg QDAY RAZ Administration Famotidine 20 mg 11/20/20 10:00 11/21/20 10:07 Famotidine 20 Mg/2 Ml Inj IV 20 mg BID RAZ Administration Hydralazine HCl 10 mg 11/20/20 14:23 11/21/20 08:26 Hydralazine 20 Mg/1 Ml Inj IV 10 mg Q4HR PRN Administration hypertension Potassium Chloride/Dextrose/Sod Cl 20 meq in 1,000 mls @ 100 mls/hr 11/20/20 06:00 D5w/0.45% Nacl/Kcl 20 Meq IV DIRECT RAZ Lorazepam 2 mg 11/20/20 04:20 11/21/20 10:56 Lorazepam 2 Mg/Ml Vial IV 2 mg Q1HR PRN Administration CIWA-Ar 8-15 Lorazepam 4 mg 11/20/20 04:20 11/20/20 18:05 Lorazepam 2 Mg/Ml Vial IV 4 mg Q1HR PRN Administration CIWA-Ar 16-25 Lorazepam 4 mg 11/20/20 04:20 Lorazepam 2 Mg/Ml Vial IV Q15MIN PRN CIWA-Ar >25 Metoprolol Tartrate 50 mg 11/21/20 10:00 11/21/20 10:08 Metoprolol Tartrate 50 Mg Tab PO 50 mg BID RAZ Administration Ondansetron HCl 4 mg 11/20/20 05:23 Ondansetron 4 Mg/2 Ml Inj IV Q8H PRN Nausea And Vomiting Pantoprazole Sodium 40 mg 11/21/20 09:01 11/21/20 10:08 Pantoprazole 40 Mg Tab PO 40 mg BIDAC RAZ Administration Potassium Chloride 40 meq 11/21/20 10:00 11/21/20 10:07 Potassium Chloride Er 20 Meq Tab PO 40 meq QDAY RAZ Administration Sodium Chloride 10 ml 11/20/20 10:00 11/21/20 10:08 Sodium Chloride 0.9% 10 Ml Flush Syringe IV 10 ml BID RAZ Administration Sodium Chloride 10 ml 11/20/20 05:23 Sodium Chloride 0.9% 10 Ml Flush Syringe IV PRN PRN LINE FLUSH Sucralfate 1 gm 11/20/20 09:00 11/21/20 06:53 Sucralfate 1 Gm/10 Ml Oral Liqd PO 1 gm Q6HR RAZ Administration
[2020-11-21 12:23] LABS: Blood Urea Nitrogen 3 mg/dL (7-17); Calcium 8.2 mg/dL (8.4-10.2); Hemolysis Index 10
[2020-11-21 12:24] LABS: BUN/Creatinine Ratio 10
--- NOTE | 2020-11-21 15:15 | Cat Scan Report ---
CT angio chest INDICATION / CLINICAL INFORMATION: MAIN. TECHNIQUE: Axial CT images were obtained after injection of 100 cc of Omnipaque 350 IV contrast using CTA protoc ol. 3 plane MIP / 3D reconstructions were produced. All CT scans at this location are performed using CT dose reduction for ALARA by means of automated exposure control. COMPARISON: None available. FINDINGS: Following the injection of intravenous contrast, no filling defects are seen in the main pulmonary ar teries or their branches. No significant parenchymal abnormality is seen in the lungs. No enlarged me diastinal or hilar lymph nodes are identified. No significant skeletal abnormality is seen. IMPRESSION: No evidence of pulmonary embolus. Negative CTA of the chest Signer Name: Amari Irby MD FACR Signed: 11/21/2020 3:11 PM Workstation Name: [id number]
[2020-11-21 18:20] VITALS: BP 116/73
--- NOTE | 2020-11-22 05:52 | Discharge Summary ---
Providers - Providers Date of Admission: 11/20/20 05:00 Date of discharge: 11/21/20 Attending physician: NOAH SOW MD [facility] Reason for admission: alcohol with drawal, alcoholic gastritis Condition: Fair Pertinent studies: CTA chest Hospital course: 30-year-old female with history of alcohol abuse was brought to emergency room with complaints of epigastric pain/chest pain. Patient is not actually having chest pain, it is on her epigastrium. Patient complaining of epigastric pain is a burning sensation in her epigastric region which is 6/10 worse with alcohol intake. patient drinks a bottle of vodka per day for several months. Patient states she is having numbness in her hands. Patient states she does not take any multivitamins or vitamin D intake. Patient denies shortness of breath. Patient complains of being anxious. Hospital course (1) Alcoholic gastritis Current Visit: Yes Status: Acute Qualifiers: Chronicity: acute Gastritis bleeding: without bleeding Qualified Code(s): K29.20 - Alcoholic gastritis without bleeding Plan to address problem: Admit the patient to the medical floor. Put the patient on regular diet. D5 half-normal saline with 20 of potassium K at the rate of 100 cc/h. Pepcid 20 mg IV every 12 hours. Zofran 4 mg IV every 6 hours as needed. Maalox 30 mL p.o. every 6 hours as needed. Recheck CBC BMP in the morning (2) Alcohol withdrawal Current Visit: Yes Status: Acute Qualifiers: Complication of substance-induced condition: uncomplicated Qualified Code(s): F10.230 - Alcohol dependence with withdrawal, uncomplicated Plan to address problem: Admit the patient to the medical floor. Put the patient on regular diet. D5 half-normal saline with 20 of potassium K at the rate of 100 cc/h. Put the patient on CIWA protocol. We will watch for withdrawal closely. Patient counseled regarding quit drinking. Recheck CBC BMP in the morning. Heparin 5000 units subcu every 8 hours for DVT prophylaxis and Pepcid 20 mg IV every 12 hours for GI prophylaxis. 11/21/2020 Patient's epigastric pain is getting better, will continue with pantoprazole and sucralfate Alcohol withdrawal; she is on CIWA protocol and still requiting IV ativan, she has tremer and persisitent tachycardia. D-dimer was done and negative for PE. Electrolyte abnormalities; corrected. Patient was alert and oriented and wants to go home, patient was still in withdrawal and requiring IV ativan. I have explained the risk benefit and she verbalized the risk and signed AMA and left home. Disposition: [id number] LEFT AGAINST MED ADVICE Time spent for discharge: 32 minutes - Discharge Diagnoses (1) Alcohol withdrawal Status: Acute Qualifiers: Complication of substance-induced condition: uncomplicated Qualified Code(s): F10.230 - Alcohol dependence with withdrawal, uncomplicated (2) Alcoholic gastritis Status: Acute Qualifiers: Chronicity: acute Gastritis bleeding: without bleeding Qualified Code(s): K29.20 - Alcoholic gastritis without bleeding (3) Anxiety Status: Acute (4) Bilateral hand numbness Status: Acute (5) Hypertension Status: Acute Qualifiers: Hypertension type: unspecified Qualified Code(s): I10 - Essential (primary) hypertension (6) Hypokalemia Status: Acute (7) Hypomagnesemia Status: Acute (8) Macrocytosis Status: Acute (9) Vitamin deficiency Status: Acute Core Measure Documentation - Palliative Care Palliative Care/ Comfort Measures: Not Applicable - Core Measures Any of the following diagnoses?: none Exam - Constitutional Vitals: Temp Pulse Resp BP Pulse Ox 98.2 F 132 H 21 116/73 99 11/20/20 19:45 11/21/20 16:31 11/21/20 16:31 11/21/20 16:31 11/21/20 14:30 General appearance: Present: no acute distress - EENT Eyes: Present: EOM intact ENT: hearing intact - Neck Neck: Present: supple, normal ROM - Respiratory Respiratory effort: normal Respiratory: negative: CTA - Cardiovascular Rhythm: other (tachycardia) Heart Sounds: Present: S1 & S2 - Extremities Extremities: no ischemia Peripheral Pulses: within normal limits - Abdominal General gastrointestinal: Present: soft, non-tender, non-distended Female genitourinary: Present: deferred - Rectal Rectal Exam: deferred - Integumentary Integumentary: Present: clear, warm, dry - Musculoskeletal Musculoskeletal: strength equal bilaterally - Psychiatric Psychiatric: agitated - Neurologic Neurologic: other (tremer of the hands) - Allied Health Allied health notes reviewed: nursing Plan Activity: no restrictions Weight Bearing Status: Full Weight Bearing Diet: regular Follow up with: BALDEMAR JC MD [Primary Care Provider] - 3-5 Days Forms: AMA Form Prescriptions: amLODIPine 10 mg PO QDAY #30 tablet Sucralfate [Carafate] 1 gm PO Q6HR #120 oral.liqd Folic Acid 1 mg PO DAILY #30 tablet Potassium Chloride [K-Dur] 40 meq PO QDAY #5 tablet Metoprolol [Lopressor TAB] 50 mg PO BID #60 tablet Pantoprazole [Protonix TAB] 40 mg PO BIDAC #60 tablet Thiamine [Vitamin B-1] 100 mg PO QDAY #30 tablet Cyanocobalamin (Vitamin B-12) [Vitamin B-12] 1,000 mcg PO DAILY #30 tablet
== END 2020-11-21 16:45 | disposition left against medical advice (07) | DRG 392 ==
LOC: ED 01:57 → IMCU 05:00
PROVIDERS: ADMIT Hospitalist; ATTEND Internal Medicine
DX: K29.20 Alcoholic gastritis without bleeding (principal); F10.239 Alcohol dependence with withdrawal, unspecified; F41.9 Anxiety disorder, unspecified; E83.42 Hypomagnesemia; I10 Essential (primary) hypertension; D75.89 Other specified diseases of blood and blood-forming organs; E87.6 Hypokalemia; E56.9 Vitamin deficiency, unspecified; Z79.899 Other long term (current) drug therapy; Z53.29 Procedure and treatment not carried out because of patient's decision for other reasons
CPT/HCPCS: 36415; 71045; 71275; 80048; 80076; 82607; 82747; 83690; 83735; 84100; 84484; 84703; 85007; 85025; 85379; 93005; G0378; J0360; J2060; J2405; J3411; J3475; J7030; Q9967